=== PATIENT | male | born 1940 | race Caucasian/White ===

== ENCOUNTER 2017-07-22 13:41 | Inpatient (IN) | payer OTHER, MEDICARE ==
[~2017-07-22] VITALS: Ht 170.2 cm; Wt 90.0 kg
[~2017-07-22 13:41] MED LIST: BUPR150T8 PO; CYCL-394 PO; DIT5T PO; ETOD-78 PO; FERGLU300T PO; HYT1T PO; LITH450T2 PO; OMEP-84 PO; SELE118S2 TP; SIMV10TA2 PO; VITA1CAP62 PO
[2017-07-22 14:12] LABS: BASOPHILS % (AUTO) 0.6 % (0-1); EOSINOPHILS # (AUTO) 0.1 X10'3 (0-0.9); EOSINOPHILS % (AUTO) 1.8 % (0-6); HEMATOCRIT 37.8 % (42.0-52.0); HEMOGLOBIN 12.9 g/dl (14.0-17.9); LYMPHOCYTES # (AUTO) 0.9 X10'3 (1.1-4.8); LYMPHOCYTES % (AUTO) 20.2 % (21-51); MEAN CORPUSCULAR HEMOGLOBIN 31.9 PG (27.0-31.0); MEAN CORPUSCULAR HGB CONC 34.2 % (33.0-36.5); MEAN CORPUSCULAR VOLUME 93.5 FL (78-98); MONOCYTES # (AUTO) 0.2 X10'3 (0-0.9); MONOCYTES % (AUTO) 5.1 % (2-12); NEUTROPHILS # (AUTO) 3.2 X10'3 (1.8-7.7); NEUTROPHILS % (AUTO) 72.3 % (42-75); PLATELET COUNT 68 X10'3 (140-440); RED BLOOD COUNT 4.04 X10'6 (4.70-6.10); RED CELL DISTRIBUTION WIDTH 14.9 % (11.5-14.5); WHITE BLOOD COUNT 4.4 X10'3 (4.5-11.0)
[2017-07-22 14:22] LABS: INR 1.1 INR; PARTIAL THROMBOPLASTIN TIME 24 SECONDS (22-32); PROTHROMBIN TIME 11.4 SECONDS (9.0-12.0)
[2017-07-22 14:31] LABS: ALANINE AMINOTRANSFERASE 55 U/L (12-78); ALBUMIN 3.4 G/DL (3.4-5.0); ALBUMIN/GLOBULIN RATIO 0.9 (1.1-1.5); ALKALINE PHOSPHATASE 96 IU/L (46-116); ANION GAP 11 (8-16); ASPARTATE AMINO TRANSFERASE 40 U/L (10-37); BILIRUBIN,TOTAL 0.8 MG/DL (0.1-1.0); BLOOD UREA NITROGEN 15 MG/DL (7-18); CALCIUM 8.8 MG/DL (8.5-10.1); CHLORIDE 104 MMOL/L (99-107); GLUCOSE 150 MG/DL (70-104); SODIUM 141 MMOL/L (135-145); TOTAL PROTEIN 7.1 G/DL (6.4-8.2); eGFR 73 ML/MIN
[2017-07-22] MEDS: K and/or MAG REPLACEMENT MC SCH (15:05)
[2017-07-22] MEDS ORDERED: magnesium 2GM in 50ml NS 50 ML IV PRN (15:05)
[2017-07-22] MEDS ORDERED: acetaminophen 325mg tablet PO PRN (15:05)
[2017-07-22] MEDS ORDERED: magnesium Cl slow-release 64mg tablet PO PRN (15:05)
[2017-07-22] MEDS ORDERED: mag hydrox/Alum hydrox/simeth 30ml oral suspension PO PRN (15:05)
[2017-07-22] MEDS ORDERED: magnesium 4gm in 100ml NS 100 ML IV PRN (15:05)
[2017-07-22] MEDS ORDERED: ondansetron/PF 4mg/2ml inj IV PRN (15:05)
[2017-07-22] MEDS ORDERED: potassium Cl 20 mEq SR tablet PO PRN ×2 (15:05)
[2017-07-22] MEDS ORDERED: potassium Cl 40MEQ/NS 500ml 500 ML IV PRN ×2 (15:05)
[2017-07-22] MEDS ORDERED: magnesium hydroxide 30ml (MOM) UD suspension PO PRN (15:05)
[2017-07-22 15:35] LABS: CLARITY,URINE Clear (Clear); GLUCOSE, URINE Negative (Neg); KETONES,URINE Negative (Neg); LEUKOCYTE ESTERASE ,URINE Negative (Neg); NITRITES, URINE Negative (Neg); OCCULT BLOOD,URINE Negative (Neg); PH,URINE 5.5 (4.8-8.0); PROTEIN,URINE Negative (Neg)
[2017-07-22 15:40] LABS: COLOR,URINE STRAW (Yellow); UA COLLECTION TYPE URINAL
[2017-07-22 15:50] LABS: URINE AMPHETAMINE SCREEN NEGATIVE (Neg); URINE BARBITUATE SCREEN NEGATIVE (Neg); URINE BENZODIAZEPINES SCREEN NEGATIVE (Neg); URINE CANNABINOID SCREEN POSITIVE (Neg); URINE COCAINE SCREEN NEGATIVE (Neg); URINE METHADONE SCREEN NEGATIVE (Neg); URINE OPIATE SCREEN NEGATIVE (Neg); URINE PHENCYCLIDINE SCREEN NEGATIVE (Neg)
[2017-07-22] MEDS: normal saline 1000ml 1,000 ML IV SCH (15:50)
[2017-07-22 15:51] LABS: ETHANOL 0.134 GM/DL (0.0-0.010)
[2017-07-22 16:06] LABS: LACTIC SEPSIS 2.1 MMOL/L (0.4-2.0)
[2017-07-22] MEDS ORDERED: dextrose 50%-water 50ml dispensing syringe IV PRN (16:55)
[2017-07-22] MEDS ORDERED: metoprolol tartrate 1mg/ml inj IV PRN (16:55)
[2017-07-22] MEDS ORDERED: nitroGLYCERIN 0.4mg SUBLingual tab SL PRN (16:55)
[2017-07-22] MEDS ORDERED: haloperidol lactate 5mg/ml inj IM PRN (16:55)
[2017-07-22] MEDS ORDERED: aminophylline 250mg/10ml inj. IV PRN (16:55)
[2017-07-22] MEDS ORDERED: regadenoson 0.4mg/5ml syringe IV ONE (16:55)
[2017-07-22] MEDS ORDERED: LORazepam 2 mg/ml vial IV PRN (16:55)
[2017-07-22] MEDS ORDERED: haloperidol 5mg tablet PO PRN (16:55)
[2017-07-22] MEDS ORDERED: thiamine 100mg/ml 2ml inj. IV ONE (17:00)
[2017-07-22 17:14] LABS: AMMONIA 54.9 UMOL/L (11-32)
[2017-07-22] MEDS: folic acid inj. 2 MG, thiamine inj. 100 MG, MVI, adult No.4 with vit. K 10 ML in dextro... IV SCH ×4 (17:30)
[2017-07-22] MEDS ORDERED: cyclobenzaprine 10mg tablet PO PRN (17:50)
[2017-07-22 18:44] LABS: MAGNESIUM 1.7 MG/DL (1.5-2.4); PHOSPHORUS 3.6 MG/DL (2.3-4.5)
[2017-07-22 19:00] VITALS: BP 127/71
[2017-07-22 20:00] VITALS: BP_SYST 102; BP_SYST 128; BP_SYST 134; BP_DIAS 70; BP_DIAS 77; BP_DIAS 84
[2017-07-22] MEDS: pantoprazole 40mg Tablet.DR PO SCH (20:29)
[2017-07-22] MEDS ORDERED: Terazosin 1mg capsule PO SCH (21:00)
[2017-07-22] MEDS ORDERED: atorvastatin 10mg tablet PO SCH (21:00)
[2017-07-22] MEDS ORDERED: oxybutynin 5mg tablet PO SCH (21:00)
[2017-07-22] MEDS ORDERED: lithium carbonate 450mg CR tablet PO SCH (21:00)
[2017-07-22] MEDS: buPROPion SR 100mg tab PO SCH (22:42)
[2017-07-22 23:00] VITALS: BP 134/84
[2017-07-23] VITALS (11 sets, daily range): BP systolic 117–153; BP diastolic 67–114
[2017-07-23] MEDS: normal saline 1000ml 1,000 ML IV SCH ×2 (01:37→11:05)
[2017-07-23 03:06] LABS: HEMATOCRIT 35.9 % (42.0-52.0); HEMOGLOBIN 12.5 g/dl (14.0-17.9); MEAN CORPUSCULAR HEMOGLOBIN 31.7 PG (27.0-31.0); MEAN CORPUSCULAR HGB CONC 34.8 % (33.0-36.5); MEAN CORPUSCULAR VOLUME 91.3 FL (78-98); MEAN PLATELET VOLUME 8.9 FL (7.4-10.4); PLATELET COUNT 56 X10'3 (140-440); RED BLOOD COUNT 3.93 X10'6 (4.70-6.10); RED CELL DISTRIBUTION WIDTH 14.9 % (11.5-14.5); WHITE BLOOD COUNT 2.6 X10'3 (4.5-11.0)
[2017-07-23 03:23] LABS: ALBUMIN 3.2 G/DL (3.4-5.0); ANION GAP 8 (8-16); BLOOD UREA NITROGEN 15 MG/DL (7-18); CALCIUM 8.7 MG/DL (8.5-10.1); CHLORIDE 108 MMOL/L (99-107); CHOL/HDL RATIO 2.2 (0.00-4.99); CHOLESTEROL 133 MG/DL (0-200); GLUCOSE 119 MG/DL (70-104); HDL CHOLESTEROL 60 MG/DL (35-60); LDL CHOLESTEROL 63 MG/DL (50-100); MAGNESIUM 1.6 MG/DL (1.5-2.4); POTASSIUM 3.9 MMOL/L (3.5-5.1); SODIUM 142 MMOL/L (135-145); TOTAL CARBON DIOXIDE 26.2 MMOL/L (24-32); TRIGLYCERIDES 75 MG/DL (20-135); eGFR 73 ML/MIN
[2017-07-23 07:01] LABS: OCCULT BLOOD STOOL NEGATIVE (Neg)
[2017-07-23] MEDS: folic acid inj. 2 MG, thiamine inj. 100 MG, MVI, adult No.4 with vit. K 10 ML in dextro... IV SCH ×4 (07:49)
[2017-07-23] MEDS: buPROPion SR 100mg tab PO SCH (07:50)
[2017-07-23] MEDS: pantoprazole 40mg Tablet.DR PO SCH (07:50)
[2017-07-23] MEDS: K and/or MAG REPLACEMENT MC SCH (08:00)
[2017-07-23] MEDS ORDERED: regadenoson 0.4mg/5ml syringe IV ONE (10:10)
[2017-07-23] MEDS ORDERED: aminophylline inj. 0 ML IV ONE (10:10)
[2017-07-24] MEDS ORDERED: LORazepam 2 mg/ml vial IV PRN (16:55)
[2017-07-24] MEDS ORDERED: LORazepam 1 MG tablet PO PRN (16:55)
[2017-07-26] MEDS ORDERED: LORazepam 1 MG tablet PO PRN (16:55)
[2017-07-26] MEDS ORDERED: LORazepam 2 mg/ml vial IV PRN (16:55)
== END 2017-07-23 14:55 | disposition home or self-care (01) | DRG 312 ==
LOC: ER 13:42 → ED HOLD 15:05 → EDBEDREQ 17:07 → PCU 3S 17:55
PROVIDERS: ADMIT Family Medicine; ATTEND Family Medicine
PROC: 4A02XM4 Measurement of Cardiac Total Activity, External Approach (ICD-10-PCS; principal; 2017-07-23)
PROC: 3E033HZ Introduction of Radioactive Substance into Peripheral Vein, Percutaneous Approach (ICD-10-PCS; 2017-07-23)
DX: R55 Syncope and collapse (principal); E11.9 Type 2 diabetes mellitus without complications; R07.9 Chest pain, unspecified; E78.5 Hyperlipidemia, unspecified; F10.20 Alcohol dependence, uncomplicated; F32.9 Major depressive disorder, single episode, unspecified; G89.29 Other chronic pain; I10 Essential (primary) hypertension; N40.0 Benign prostatic hyperplasia without lower urinary tract symptoms; Y90.6 Blood alcohol level of 120-199 mg/100 ml; F12.90 Cannabis use, unspecified, uncomplicated; K29.70 Gastritis, unspecified, without bleeding; M54.9 Dorsalgia, unspecified; Z79.899 Other long term (current) drug therapy
CPT/HCPCS: 36415; 70450; 71045; 78452; 80048; 80053; 80061; 80305; 80320; 81003; 82140; 82272; 82948; 83605; 83735; 83880; 84100; 84443; 84484; 85025; 85027; 85610; 85730; 87040; 87070; 93005; 93017; 93306; 93880; 97161; 97530; 99285; A6258; A9500; J0280; J3411; J3490; J7030; J7060

== ENCOUNTER 2018-02-23 09:18 | Emergency (ER) | payer MEDICARE, OTHER ==
[~2018-02-23] VITALS: Ht 170.2 cm; Wt 94.0 kg
[~2018-02-23 09:18] MED LIST changes: -ETOD-78 PO; -FERGLU300T PO; -SELE118S2 TP; -VITA1CAP62 PO
[2018-02-23] MEDS ORDERED: HYDROcodone/acetaminophen 10/325mg tab PO ONE (11:00)
[2018-02-23 11:14] VITALS: BP 167/86
[2018-02-23] MEDS ORDERED: HYDR-565 PO (12:00)
== END 2018-02-23 12:14 | disposition home or self-care (01) ==
LOC: ER 09:18
DX: M54.2 Cervicalgia (principal); M54.5 Low back pain; M54.6 Pain in thoracic spine; I10 Essential (primary) hypertension; G89.29 Other chronic pain; F12.90 Cannabis use, unspecified, uncomplicated; V49.59XA Passenger injured in collision with other motor vehicles in traffic accident, initial encounter; Y93.89 Activity, other specified; Y92.413 State road as the place of occurrence of the external cause; Y99.9 Unspecified external cause status
CPT/HCPCS: 71045; 72040; 72070; 72100; 99284

== ENCOUNTER 2018-05-28 14:09 | Inpatient (IN) | payer MEDICARE, OTHER ==
[~2018-05-28] VITALS: Ht 172.7 cm; Wt 100.0 kg
[2018-05-28] MEDS ORDERED: ondansetron/PF 4mg/2ml inj IV ONE ×2 (14:25→16:45)
[2018-05-28] MEDS ORDERED: normal saline 1000ML IV soln IVB ONE (14:25)
[2018-05-28] MEDS: morphine 4 MG/ML inj SYRINge IV PRN ×2 (14:56→17:47)
[2018-05-28 15:23] LABS: ANION GAP 11 (8-16); BLOOD UREA NITROGEN 11 MG/DL (7-18); BUN/CREATININE RATIO 11.3 (5.4-32.0); CHLORIDE 99 MMOL/L (99-107); CREATININE 0.97 MG/DL (0.60-1.10); GLUCOSE 164 MG/DL (70-104); POTASSIUM 3.7 MMOL/L (3.5-5.1); SODIUM 137 MMOL/L (135-145); TOTAL CARBON DIOXIDE 27.3 MMOL/L (24-32)
[2018-05-28 15:24] LABS: ALANINE AMINOTRANSFERASE 46 U/L (12-78); ALBUMIN 3.3 G/DL (3.4-5.0); ALBUMIN/GLOBULIN RATIO 0.8 (1.1-1.5); ALKALINE PHOSPHATASE 105 IU/L (46-116); ASPARTATE AMINO TRANSFERASE 39 U/L (10-37); BASOPHILS # (AUTO) 0.1 X10'3 (0-0.2); BILIRUBIN,TOTAL 2.1 MG/DL (0.1-1.0); CALCIUM 9.6 MG/DL (8.5-10.1); EOSINOPHILS # (AUTO) 0.1 X10'3 (0-0.9); EOSINOPHILS % (AUTO) 1.1 % (0-6); HEMATOCRIT 41.5 % (42.0-52.0); LYMPHOCYTES # (AUTO) 1.1 X10'3 (1.1-4.8); LYMPHOCYTES % (AUTO) 19.8 % (21-51); MEAN CORPUSCULAR HEMOGLOBIN 31.1 PG (27.0-31.0); MEAN CORPUSCULAR HGB CONC 33.7 % (33.0-36.5); MEAN CORPUSCULAR VOLUME 92.3 FL (78-98); MEAN PLATELET VOLUME 9.7 FL (7.4-10.4); MONOCYTES # (AUTO) 0.3 X10'3 (0-0.9); MONOCYTES % (AUTO) 5.6 % (2-12); NEUTROPHILS # (AUTO) 4.2 X10'3 (1.8-7.7); NEUTROPHILS % (AUTO) 72.5 % (42-75); PLATELET COUNT 95 X10'3 (140-440); RED BLOOD COUNT 4.49 X10'6 (4.70-6.10); RED CELL DISTRIBUTION WIDTH 13.8 % (11.5-14.5); TOTAL PROTEIN 7.4 G/DL (6.4-8.2); WHITE BLOOD COUNT 5.8 X10'3 (4.5-11.0); eGFR 75 ML/MIN
[2018-05-28 15:26] LABS: LACTIC SEPSIS 1.5 MMOL/L (0.4-2.0)
[2018-05-28 16:09] LABS: CLARITY,URINE SLIGHTLY CLOUDY (Clear); COLOR,URINE AMBER (Yellow); GLUCOSE, URINE NEGATIVE (Neg); KETONES,URINE TRACE mg/dl (Neg); LEUKOCYTE ESTERASE ,URINE NEGATIVE (Neg); NITRITES, URINE NEGATIVE (Neg); OCCULT BLOOD,URINE NEGATIVE (Neg); PH,URINE 5.5 (4.8-8.0); PROTEIN,URINE TRACE mg/dl (Neg)
[2018-05-28 16:12] LABS: UA COLLECTION TYPE CLN CATCH MIDSTREAM
[2018-05-28 16:19] LABS: BACTERIA,URINE NONE SEEN /HPF (Neg); MUCUS STRANDS MODERATE /LPF (Neg); RBC,URINE NONE SEEN /HPF (0-2); SQUAMOUS EPITHELIAL CELL,UR FEW /LPF (FEW)
[2018-05-28] MEDS ORDERED: morphine 4 MG/ML inj SYRINge IV ONE (16:45)
[2018-05-28] MEDS ORDERED: magnesium hydroxide 30ml (MOM) UD suspension PO PRN (18:10)
[2018-05-28] MEDS ORDERED: HYDROcodone/acetaminophen 5mg/325mg tablet PO PRN (18:10)
[2018-05-28] MEDS ORDERED: mag hydrox/Alum hydrox/simeth 30ml oral suspension PO PRN (18:10)
[2018-05-28] MEDS ORDERED: potassium Cl 20 mEq SR tablet PO PRN ×2 (18:10)
[2018-05-28] MEDS ORDERED: magnesium Cl slow-release 64mg tablet PO PRN (18:10)
[2018-05-28] MEDS ORDERED: acetaminophen 325mg tablet PO PRN ×2 (18:10)
[2018-05-28] MEDS ORDERED: potassium Cl 40MEQ/NS 500ml 500 ML IV PRN ×2 (18:10)
[2018-05-28] MEDS ORDERED: magnesium 4gm in 100ml NS 100 ML IV PRN (18:10)
[2018-05-28] MEDS ORDERED: HYDROmorphone 1 mg/ml syringe IV PRN (18:10)
[2018-05-28] MEDS ORDERED: ondansetron/PF 4mg/2ml inj IV PRN (18:10)
[2018-05-28 18:13] LABS: INR 1.2 INR; PROTHROMBIN TIME 12.5 SECONDS (9.0-12.0)
[2018-05-28 18:20] LABS: LIPASE 141 U/L (73-393)
[2018-05-28] MEDS ORDERED: cyclobenzaprine 10mg tablet PO PRN (18:25)
[2018-05-28] MEDS: pantoprazole 40mg Tablet.DR PO SCH (20:29)
[2018-05-28] MEDS: normal saline 1000ml 1,000 ML IV SCH (20:29)
[2018-05-28] MEDS: buPROPion SR 150mg tablet PO SCH (20:30)
[2018-05-28] MEDS ORDERED: atorvastatin 10mg tablet PO SCH (21:00)
[2018-05-28] MEDS ORDERED: temazepam 15mg capsule PO PRN (21:00)
[2018-05-28 21:30] VITALS: BP 144/89
[2018-05-28] MEDS: lithium carbonate 450mg CR tablet PO SCH (22:17)
[2018-05-28] MEDS: oxybutynin 5mg tablet PO SCH (22:17)
[2018-05-28] MEDS: Terazosin 1mg capsule PO SCH (22:17)
[2018-05-28 23:40] LABS: HEMOGLOBIN A1C 6.5 % (4.5-6.2)
[2018-05-29] VITALS: BP 127/73
[2018-05-29] MEDS: HYDROcodone/acetaminophen 10/325mg tab PO PRN (04:53)
[2018-05-29 06:16] LABS: BASOPHILS % (AUTO) 0.5 % (0-1); EOSINOPHILS # (AUTO) 0.2 X10'3 (0-0.9); EOSINOPHILS % (AUTO) 5.7 % (0-6); HEMATOCRIT 36.6 % (42.0-52.0); HEMOGLOBIN 12.4 g/dl (14.0-17.9); LYMPHOCYTES # (AUTO) 0.9 X10'3 (1.1-4.8); LYMPHOCYTES % (AUTO) 32.7 % (21-51); MEAN CORPUSCULAR HEMOGLOBIN 31.4 PG (27.0-31.0); MEAN CORPUSCULAR HGB CONC 33.9 % (33.0-36.5); MEAN CORPUSCULAR VOLUME 92.5 FL (78-98); MEAN PLATELET VOLUME 9.9 FL (7.4-10.4); MONOCYTES # (AUTO) 0.2 X10'3 (0-0.9); MONOCYTES % (AUTO) 6.7 % (2-12); NEUTROPHILS # (AUTO) 1.5 X10'3 (1.8-7.7); NEUTROPHILS % (AUTO) 54.4 % (42-75); PLATELET COUNT 77 X10'3 (140-440); RED BLOOD COUNT 3.96 X10'6 (4.70-6.10); RED CELL DISTRIBUTION WIDTH 13.8 % (11.5-14.5); WHITE BLOOD COUNT 2.7 X10'3 (4.5-11.0)
[2018-05-29 06:41] LABS: ALANINE AMINOTRANSFERASE 40 U/L (12-78); ALBUMIN 2.9 G/DL (3.4-5.0); ALBUMIN/GLOBULIN RATIO 0.8 (1.1-1.5); ALKALINE PHOSPHATASE 85 IU/L (46-116); ANION GAP 8 (8-16); ASPARTATE AMINO TRANSFERASE 37 U/L (10-37); BILIRUBIN,TOTAL 1.4 MG/DL (0.1-1.0); BLOOD UREA NITROGEN 10 MG/DL (7-18); BUN/CREATININE RATIO 10.1 (5.4-32.0); CALCIUM 8.7 MG/DL (8.5-10.1); CHLORIDE 104 MMOL/L (99-107); CREATININE 0.99 MG/DL (0.60-1.10); GLUCOSE 123 MG/DL (70-104); MAGNESIUM 1.4 MG/DL (1.5-2.4); PHOSPHORUS 3.3 MG/DL (2.3-4.5); POTASSIUM 3.7 MMOL/L (3.5-5.1); SODIUM 140 MMOL/L (135-145); TOTAL CARBON DIOXIDE 28.2 MMOL/L (24-32); TOTAL PROTEIN 6.5 G/DL (6.4-8.2); eGFR 73 ML/MIN
[2018-05-29 06:43] LABS: PLATELET ESTIMATE DECREASED; TOTAL CELLS COUNTED 100
[2018-05-29 07:00] VITALS: BP 136/73
[2018-05-29] MEDS: K and/or MAG REPLACEMENT MC SCH (08:00)
[2018-05-29] MEDS: enoxaparin 40mg/0.4ml syringe SQ SCH (08:00)
[2018-05-29] MEDS: buPROPion SR 150mg tablet PO SCH (08:29)
[2018-05-29] MEDS: pantoprazole 40mg Tablet.DR PO SCH ×2 (08:29→20:48)
[2018-05-29] MEDS: normal saline 1000ml 1,000 ML IV SCH ×2 (10:48→22:15)
[2018-05-29 11:00] VITALS: BP 140/86
[2018-05-29] MEDS: HYDROmorphone 1 mg/ml syringe IV PRN ×2 (13:22→20:56)
[2018-05-29 20:00] VITALS: BP 148/79
[2018-05-29] MEDS: lithium carbonate 450mg CR tablet PO SCH (20:44)
[2018-05-29] MEDS: Terazosin 1mg capsule PO SCH (20:45)
[2018-05-29] MEDS: oxybutynin 5mg tablet PO SCH (20:48)
[2018-05-29] MEDS ORDERED: buPROPion SR 100mg tab PO ONE (20:50)
[2018-05-30] VITALS: BP 158/74
[2018-05-30] MEDS: normal saline 1000ml 1,000 ML IV SCH ×2 (00:07→10:07)
[2018-05-30 05:59] LABS: BASOPHILS % (AUTO) 0.7 % (0-1); EOSINOPHILS # (AUTO) 0.2 X10'3 (0-0.9); EOSINOPHILS % (AUTO) 7.3 % (0-6); HEMATOCRIT 37.7 % (42.0-52.0); HEMOGLOBIN 12.6 g/dl (14.0-17.9); LYMPHOCYTES # (AUTO) 0.6 X10'3 (1.1-4.8); LYMPHOCYTES % (AUTO) 19.3 % (21-51); MEAN CORPUSCULAR HGB CONC 33.5 % (33.0-36.5); MEAN CORPUSCULAR VOLUME 92.7 FL (78-98); MEAN PLATELET VOLUME 9.2 FL (7.4-10.4); MONOCYTES # (AUTO) 0.1 X10'3 (0-0.9); MONOCYTES % (AUTO) 4.4 % (2-12); NEUTROPHILS # (AUTO) 2.2 X10'3 (1.8-7.7); NEUTROPHILS % (AUTO) 68.3 % (42-75); PLATELET COUNT 79 X10'3 (140-440); RED BLOOD COUNT 4.07 X10'6 (4.70-6.10); RED CELL DISTRIBUTION WIDTH 13.7 % (11.5-14.5); WHITE BLOOD COUNT 3.3 X10'3 (4.5-11.0)
[2018-05-30 06:20] LABS: ALANINE AMINOTRANSFERASE 40 U/L (12-78); ALBUMIN/GLOBULIN RATIO 0.8 (1.1-1.5); ALKALINE PHOSPHATASE 91 IU/L (46-116); ANION GAP 9 (8-16); ASPARTATE AMINO TRANSFERASE 36 U/L (10-37); BILIRUBIN,TOTAL 1.6 MG/DL (0.1-1.0); BLOOD UREA NITROGEN 8 MG/DL (7-18); BUN/CREATININE RATIO 8.4 (5.4-32.0); CALCIUM 9.1 MG/DL (8.5-10.1); CHLORIDE 104 MMOL/L (99-107); CREATININE 0.95 MG/DL (0.60-1.10); GLUCOSE 117 MG/DL (70-104); MAGNESIUM 1.4 MG/DL (1.5-2.4); PHOSPHORUS 2.9 MG/DL (2.3-4.5); POTASSIUM 3.8 MMOL/L (3.5-5.1); SODIUM 138 MMOL/L (135-145); TOTAL CARBON DIOXIDE 24.8 MMOL/L (24-32); TOTAL PROTEIN 6.7 G/DL (6.4-8.2); eGFR 77 ML/MIN
[2018-05-30 07:12] VITALS: BP 131/85
[2018-05-30] MEDS: K and/or MAG REPLACEMENT MC SCH (08:00)
[2018-05-30] MEDS: enoxaparin 40mg/0.4ml syringe SQ SCH (08:00)
[2018-05-30] MEDS: HYDROmorphone 1 mg/ml syringe IV PRN (09:23)
[2018-05-30] MEDS: pantoprazole 40mg Tablet.DR PO SCH ×2 (10:40→20:39)
[2018-05-30] MEDS: buPROPion SR 100mg tab PO SCH ×2 (10:40→20:39)
[2018-05-30 11:00] VITALS: BP 145/92
[2018-05-30] MEDS ORDERED: ibuprofen tablet 400 MG TABLET PO PRN (12:10)
[2018-05-30] MEDS ORDERED: morphine 2 MG/ML inj. syringe IV PRN (12:10)
[2018-05-30] MEDS: lactulose 20gm/30ml cup PO SCH ×2 (15:20→20:39)
[2018-05-30] MEDS: HYDROcodone/acetaminophen 10/325mg tab PO PRN (19:28)
[2018-05-30 20:00] VITALS: BP 126/78
[2018-05-30] MEDS: oxybutynin 5mg tablet PO SCH (20:39)
[2018-05-30] MEDS: Terazosin 1mg capsule PO SCH (20:39)
[2018-05-30] MEDS: lithium carbonate 450mg CR tablet PO SCH (20:40)
[2018-05-31] VITALS: BP 139/89
[2018-05-31] MEDS: lactulose 20gm/30ml cup PO SCH ×4 (01:26→12:00)
[2018-05-31 05:50] LABS: BASOPHILS % (AUTO) 0.2 % (0-1); EOSINOPHILS # (AUTO) 0.2 X10'3 (0-0.9); HEMATOCRIT 38.4 % (42.0-52.0); HEMOGLOBIN 12.8 g/dl (14.0-17.9); LYMPHOCYTES # (AUTO) 0.7 X10'3 (1.1-4.8); LYMPHOCYTES % (AUTO) 20.4 % (21-51); MEAN CORPUSCULAR HEMOGLOBIN 30.8 PG (27.0-31.0); MEAN CORPUSCULAR HGB CONC 33.3 % (33.0-36.5); MEAN CORPUSCULAR VOLUME 92.5 FL (78-98); MEAN PLATELET VOLUME 8.8 FL (7.4-10.4); MONOCYTES # (AUTO) 0.2 X10'3 (0-0.9); MONOCYTES % (AUTO) 4.8 % (2-12); NEUTROPHILS # (AUTO) 2.3 X10'3 (1.8-7.7); NEUTROPHILS % (AUTO) 69.6 % (42-75); PLATELET COUNT 82 X10'3 (140-440); RED BLOOD COUNT 4.15 X10'6 (4.70-6.10); RED CELL DISTRIBUTION WIDTH 13.4 % (11.5-14.5); WHITE BLOOD COUNT 3.3 X10'3 (4.5-11.0)
[2018-05-31] MEDS: HYDROcodone/acetaminophen 10/325mg tab PO PRN ×2 (05:50→14:05)
[2018-05-31 06:05] LABS: ALANINE AMINOTRANSFERASE 37 U/L (12-78); ALBUMIN 3.1 G/DL (3.4-5.0); ALBUMIN/GLOBULIN RATIO 0.8 (1.1-1.5); ALKALINE PHOSPHATASE 97 IU/L (46-116); ANION GAP 9 (8-16); ASPARTATE AMINO TRANSFERASE 31 U/L (10-37); BILIRUBIN,TOTAL 1.5 MG/DL (0.1-1.0); BLOOD UREA NITROGEN 9 MG/DL (7-18); BUN/CREATININE RATIO 8.4 (5.4-32.0); CALCIUM 9.1 MG/DL (8.5-10.1); CHLORIDE 104 MMOL/L (99-107); CREATININE 1.07 MG/DL (0.60-1.10); GLUCOSE 128 MG/DL (70-104); MAGNESIUM 1.9 MG/DL (1.5-2.4); PHOSPHORUS 2.6 MG/DL (2.3-4.5); POTASSIUM 3.6 MMOL/L (3.5-5.1); SODIUM 138 MMOL/L (135-145); TOTAL CARBON DIOXIDE 25.4 MMOL/L (24-32); TOTAL PROTEIN 6.9 G/DL (6.4-8.2); eGFR 67 ML/MIN
[2018-05-31] MEDS: enoxaparin 40mg/0.4ml syringe SQ SCH (07:16)
[2018-05-31] MEDS: K and/or MAG REPLACEMENT MC SCH (07:17)
[2018-05-31 07:34] VITALS: BP 140/87
[2018-05-31] MEDS ORDERED: potassium Cl 40MEQ/NS 500ml 500 ML IV PRN ×2 (07:35)
[2018-05-31] MEDS ORDERED: magnesium 4gm in 100ml NS 100 ML IV PRN (07:35)
[2018-05-31] MEDS ORDERED: magnesium Cl slow-release 64mg tablet PO PRN (07:35)
[2018-05-31] MEDS ORDERED: potassium Cl 20 mEq SR tablet PO PRN ×2 (07:35)
[2018-05-31] MEDS ORDERED: magnesium 2GM in 50ml NS 50 ML IV PRN (07:35)
[2018-05-31] MEDS: pantoprazole 40mg Tablet.DR PO SCH (08:49)
[2018-05-31] MEDS: buPROPion SR 100mg tab PO SCH (08:49)
[2018-05-31 11:25] VITALS: BP 154/90
== END 2018-05-31 15:20 | disposition home or self-care (01) | DRG 392 ==
LOC: ER 14:10 → ED HOLD 18:07 → EDBEDREQ 20:15 → SUR 3N 21:40
PROVIDERS: ADMIT Family Medicine; ATTEND Hospitalist
PROC: 3E02340 Introduction of Influenza Vaccine into Muscle, Percutaneous Approach (ICD-10-PCS; principal; 2018-05-29)
PROC: CF141ZZ Planar Nuclear Medicine Imaging of Gallbladder using Technetium 99m (Tc-99m) (ICD-10-PCS; 2018-05-30)
DX: K59.00 Constipation, unspecified (principal); K76.6 Portal hypertension; K70.11 Alcoholic hepatitis with ascites; K70.31 Alcoholic cirrhosis of liver with ascites; E86.0 Dehydration; E78.5 Hyperlipidemia, unspecified; F12.90 Cannabis use, unspecified, uncomplicated; Z60.2 Problems related to living alone; K80.20 Calculus of gallbladder without cholecystitis without obstruction; F10.20 Alcohol dependence, uncomplicated; F31.9 Bipolar disorder, unspecified; I10 Essential (primary) hypertension; N40.0 Benign prostatic hyperplasia without lower urinary tract symptoms; B19.20 Unspecified viral hepatitis C without hepatic coma; G89.29 Other chronic pain; M54.9 Dorsalgia, unspecified; R16.1 Splenomegaly, not elsewhere classified; Z23 Encounter for immunization; Z79.899 Other long term (current) drug therapy; Z72.89 Other problems related to lifestyle; Z87.891 Personal history of nicotine dependence
CPT/HCPCS: 36415; 74176; 76700; 78226; 80053; 81001; 82140; 83036; 83605; 83690; 83735; 84100; 85025; 85610; 87040; 87070; 87077; 87088; 87186; 93005; 96361; 96374; 96375; 96376; 97110; 97116; 97161; 99285; A9537; G0378; J1170; J1650; J2270; J2405; J3475; J7030

== ENCOUNTER 2018-10-27 17:48 | Inpatient (IN) | payer MEDICARE, OTHER | END 2018-11-09 01:50 | disposition E | LOC: ORTHO 4S 11-08 13:15 → ER 17:48 → CICU 2S 22:37 | PROC: 5A1955Z Respiratory Ventilation, Greater than 96 Consecutive Hours (ICD-10-PCS; principal; ~2018-10-27) | DX: A41.9 Sepsis, unspecified organism (principal); I63.9 Cerebral infarction, unspecified; J69.0 Pneumonitis due to inhalation of food and vomit; I21.4 Non-ST elevation (NSTEMI) myocardial infarction; I46.9 Cardiac arrest, cause unspecified; J96.00 Acute respiratory failure, unspecified whether with hypoxia or hypercapnia; K76.7 Hepatorenal syndrome; N39.0 Urinary tract infection, site not specified; N17.9 Acute kidney failure, unspecified; I48.91 Unspecified atrial fibrillation; K70.30 Alcoholic cirrhosis of liver without ascites; K72.90 Hepatic failure, unspecified without coma ==